=== PATIENT | female | born 1985 | race Caucasian/White ===

== ENCOUNTER 2018-07-01 21:32 | Emergency (ER) | payer SELFPAY ==
[2018-07-01 21:48] VITALS: BP 152/71
[2018-07-01] MEDS ORDERED: methylPREDNISolone 125 MG* 2 ML VIAL IM ONE (21:52)
[2018-07-01] MEDS ORDERED: Amoxicillin PO (*) 400 MG/5 ML ORAL.SOLN 50 ML BOTTLE PO ONE (21:54)
--- NOTE | 2018-07-01 22:01 | UC ---
Throat Pain/Nasal [place]ito HPI - HPI Summary HPI Summary: patients son is being treated for an infection. she has severe sore throat and having a hard time talking and swallowing. - History of Current Complaint Chief Complaint: UCGeneralIllness Stated Complaint: SORE THROAT Time Seen by Provider: 07/01/18 21:47 Hx Obtained From: Patient ?: No Onset/Duration: Sudden Onset, Lasting Days Severity: Severe Pain Intensity: 9 Associated Signs & Symptoms: Positive: Dysphagia, Hoarseness - Allergies/Home Medications Allergies/Adverse Reactions: Allergies Allergy/AdvReac Type Severity Reaction Status Date / Time No Known Allergies Allergy Verified 07/01/18 21:48 PMH/Surg Hx/FS Hx/Imm Hx Previously Healthy: Yes - Surgical History Surgical History: Yes Surgery Procedure, Year, and Place: 3x c-sec - Family History Known Family History: Negative: Hypertension - Social History Alcohol Use: Weekly Alcohol Amount: 3x Substance Use Type: None Smoking Status (MU): Never Smoked Tobacco - Immunization History Most Recent Influenza Vaccination: 2011 Most Recent Tetanus Shot: 11/11/2015 Most Recent Pneumonia Vaccination: never Review of Systems All Other Systems Reviewed And Are Negative: Yes ENT: Positive: Sore Throat, Ear Ache Respiratory: Positive: Cough Is Patient Immunocompromised?: No Physical Exam Triage Information Reviewed: Yes Appearance: Well-Appearing, Well-Nourished, Pain Distress Vital Signs: Initial Vital Signs Temp 98.9 F 07/01/18 21:42 Pulse 91 07/01/18 21:42 Resp 16 07/01/18 21:42 BP 152/71 07/01/18 21:42 Pulse Ox 100 07/01/18 21:42 Vital Signs Reviewed: Yes Eye Exam: Normal ENT: Positive: Pharyngeal erythema - and, TM bulging, Tonsillar swelling, Tonsillar exudate Dental Exam: Normal Neck: Positive: Enlarged Nodes @ - bilateral cervical Respiratory Exam: Normal Respiratory: Positive: Chest non-tender, Lungs clear, Normal breath sounds Cardiovascular Exam: Normal Cardiovascular: Positive: RRR, No Murmur, Pulses Normal Abdominal Exam: Normal Abdomen Description: Positive: Nontender, No Organomegaly, Soft Bowel Sounds: Positive: Present Musculoskeletal Exam: Normal Neurological Exam: Normal Psychological Exam: Normal Skin Exam: Normal Throat Pain/Nasal Course/Dx - Course Course Of Treatment: hx obtained, exam performed, meds reviewed, treated for pharyngitis - Differential Dx/Diagnosis Differential Diagnosis/HQI/PQRI: Otitis Media, Pharyngitis, Sinusitis, URI Provider Diagnosis: Pharyngitis Discharge - Sign-Out/Discharge Documenting (check all that apply): Patient Departure All imaging exams completed and their final reports reviewed: No Studies - Discharge Plan Condition: Stable Disposition: HOME Prescriptions: Amoxicillin PO (*) [Amoxicillin 875 MG (*)] 875 mg PO BID #16 tab predniSONE [Prednisone 20 MG TAB] 20 mg PO DAILY #18 tablet Patient Education Materials: Pharyngitis (ED) Referrals: No Primary Care Phys,NOPCP [Primary Care Provider] - Additional Instructions: 1. take the medication as prescribed. 2. Start the prednisone pills tomorrow 3. use the liquid amoxicillin for the next 2 days then switch to the pills, 4 continue with ibuprofen 400 mg every 4-6 hours 5. warm liquids for the throat. 6. Follow upw ith any Shortness of breath, fever or worsening symptoms - Billing Disposition and Condition Condition: STABLE Disposition: Home
== END 2018-07-01 22:24 | disposition home or self-care (01) ==
LOC: UCEAST 21:32
DX: J02.9 Acute pharyngitis, unspecified (principal)
CPT/HCPCS: 96372; 99212; G0463; J2930

== ENCOUNTER 2018-07-19 09:01 | Emergency (ER) | payer SELFPAY ==
[2018-07-19 09:20] VITALS: BP 115/70
--- NOTE | 2018-07-19 09:34 | UC ---
Throat Pain/Nasal [place]ito HPI - HPI Summary HPI Summary: CHIEF COMPLAINT and HPI: THIS IS A healthy 32-year-old female with a diagnosis on 07/01/18 of strep throat, treated with amoxicillin, returns to the urgent care Center with a complaint of increasing right-sided throat discomfort over the past 2 days. She denies elevated temperature. Pain is described as 6/10. VITAL SIGNS & SaO2 REVIEWED. Within normal limits unless noted here. 99.1 NURSES NOTE REVIEWED. "was in 2 weeks ago had been on antibiotics for sore throat. throat healed onABX, then pain came back after rx was gone. denies fever, has cough, and stiff neck on right side." - History of Current Complaint Chief Complaint: UCGeneralIllness Stated Complaint: SORE THROAT STIFF NECK Time Seen by Provider: 07/19/18 09:31 Hx Last Menstrual Period: 07/17/18 Pain Intensity: 6 - Allergies/Home Medications Allergies/Adverse Reactions: Allergies Allergy/AdvReac Type Severity Reaction Status Date / Time No Known Allergies Allergy Verified 07/19/18 09:20 PMH/Surg Hx/FS Hx/Imm Hx - Additional Past Medical History Additional PMH: PAST MEDICAL HISTORY- , depression, anxiety. CHRONIC and RECURRENT HEALTH PROBLEM LIST REVIEWED. Information relevant to present complaint: non contributory VISIT HISTORY REVIEWED: Seen here on 07/01/18 with a diagnosis of strep pharyngitis. Started on amoxicillin. MEDICATIONS & ALLERGIES REVIEWED. HYPERTENSION STATUS: Not hypertensive. 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 Previously Healthy: Yes - Surgical History Surgical History: Yes Surgery Procedure, Year, and Place: 3x c-sec - Family History Known Family History: Negative: Hypertension - Social History Alcohol Use: Weekly Alcohol Amount: 3x Substance Use Type: None Smoking Status (MU): Never Smoked Tobacco - Immunization History Most Recent Influenza Vaccination: 2011 Most Recent Tetanus Shot: 11/11/2015 Most Recent Pneumonia Vaccination: never Review of Systems All Other Systems Reviewed And Are Negative: Yes Constitutional: Positive: Negative ENT: Positive: Sore Throat, Other - right sided neck discomfort Respiratory: Positive: Negative. Negative: Shortness Of Breath Cardiovascular: Positive: Negative. Negative: Palpitations Gastrointestinal: Positive: Negative. Negative: Abdominal Pain Physical Exam - Summary Physical Exam Summary: Appearance: The patient is well-appearing, is in no pain or distress, and is well-nourished. Eyes: Conjunctiva are clear. Pupils are equal and reactive to light and accommodation. Extra ocular muscle movement is intact. ENT: The hearing is grossly normal, the pharynx is red, no exudate and the TMs are normal. There is no muffled or hoarse voice. No stridor. Negative anterior adenopathy. Neck: The neck is supple and there is no lymphadenopathy. Respiratory: The chest is non-tender to palpation and without crepitus. The lungs are clear, there are normal breath sounds, and there is no respiratory distress. No wheezes, rales or rhonchi. Cardiovascular: Heart sounds reveal a regular rate and rhythm. There are no clicks, rubs or murmurs. There are no carotid bruits or thrills. Circulation is grossly intact. Abdomen: The abdomen is soft and nontender. There is no organomegaly. Bowel sounds are present and within normal limits. No point tenderness at McBurneys point. No CVA tenderness. Musculoskeletal: Strength is intact. The patient moves all extremities. Neurological: The patient is alert. Motor and sensory are examination grossly intact. Speech is normal. Psychological: The patient displays age appropriate behavior, and is conversant. GCS=15. Skin: Negative for rashes. Triage Information Reviewed: Yes Vital Signs: Initial Vital Signs Temp 99.1 F 07/19/18 09:16 Pulse 78 07/19/18 09:16 Resp 18 07/19/18 09:16 BP 115/70 07/19/18 09:16 Pulse Ox 100 07/19/18 09:16 Vital Signs Reviewed: Yes Throat Pain/Nasal Course/Dx - Course Course Of Treatment: MEDICAL DECISION MAKING and PLAN: THIS IS A healthy 32-year-old female with a diagnosis on 07/01/18 of strep throat, treated with amoxicillin, returns to the urgent care Center with a complaint of increasing right-sided throat discomfort over the past 2 days. She denies elevated temperature. Pain is described as 6/ 10. On her previous visit was 8/10. Her pain is right-sided. She has full range of motion of her neck. She can handle secretions and is eating and drinking. Review of systems is noncontributory except for throat discomfort. Her examination shows her temperature to be 99.1 with a erythematous posterior pharynx, full range of motion of her neck and no anterior cervical adenopathy. Strep was positive. My diagnosis is reinfection of strep throat. I will start her on Keflex, 500 mg twice a day. She also knows various strategies to decrease her discomfort. MEDICATIONS REVIEWED. HYPERTENSION STATUS REVIEWED WITH PATIENT IF blood pressure is above 120/80. - Differential Dx/Diagnosis Differential Diagnosis/HQI/PQRI: Epiglottitis, Mononucleosis, Pharyngitis, Tonsillitis Provider Diagnosis: Strep pharyngitis Discharge - Sign-Out/Discharge Documenting (check all that apply): Patient Departure All imaging exams completed and their final reports reviewed: No Studies - Discharge Plan Condition: Stable Disposition: HOME Prescriptions: Cephalexin CAP* [Keflex 500 CAP*] 500 mg PO BID #20 cap MDD 4 Patient Education Materials: Strep Throat (DC) Referrals: No Primary Care Phys,NOPCP [Primary Care Provider] - Additional Instructions: WE DISCUSSED: PLEASE SEEK CARE AT THE EMERGENCY DEPARTMENT IF SYMPTOMS WORSEN OR IF NEW SYMPTOMS DEVELOP. FOLLOW UP WITH YOUR PRIMARY CARE PHYSICIAN IF CONDITION CONTINUES BEYOND 3 DAYS WITHOUT IMPROVEMENT. YOUR DIAGNOSIS IS: strep throat second infection YOUR PRESCRIPTION RECOMMENDATION IS: kefkex 500 mg; twice a day for 10 days. DRINK LOTS OF WARM FLUIDS WARM WATER GARGLES, WITH TSP OF SALT PER 8 OUNCES OF WATER, GARGLE FOR A FEW SECONDS AND SPIT OUT; GARGLE AND SPIT OUT, EVERY THREE HOURS. USE LOZENGES TO KEEP THROAT PROTECTED. FOR PAIN AND/OR SLEEP: For pain: Ibuprofen (Motrin and other brand names) 400-600mg PLUS acetaminophen (Tylenol and other brand names) 500mg - 1000mg every 8 hours. - Billing Disposition and Condition Condition: STABLE Disposition: Home
== END 2018-07-19 10:27 | disposition home or self-care (01) ==
LOC: UCEAST 09:01
DX: J02.0 Streptococcal pharyngitis (principal)
CPT/HCPCS: 87651; 99212; G0463